=== PATIENT | female | born 1955 | race Caucasian/White ===

== ENCOUNTER 2019-03-30 13:05 | Emergency (ER) | payer BC, SELFPAY ==
[2019-03-30] VITALS (13 sets, daily range): BP systolic 111–147; BP diastolic 50–99; PULSE 92–112; RESP 17–33; TEMP 38.3–39.6; O2SAT 95–99
--- NOTE | ~2019-03-30 | XR_ITS ---
EXAMINATION: XR chest ET placement EXAM DATE: 03/30/2019 23:22 INDICATION: Intubated. TECHNIQUE: Portable AP frontal chest x-ray was obtained. Comparison is made to prior examination from earlier same date. FINDINGS: Endotracheal tube probably about 1-2 cm above kwan. There is a nasogastric tube seen with tip collimated off the study, but below the left hemidiaphragm. Development of moderate amount of bilateral perihilar predominant airspace disease, could be pneumoni a or edema/ARDS. Cardiomediastinal silhouette is normal. IMPRESSION: 1. Tubes adequately positioned. 2. Development of moderate bilateral perihilar edema/ARDS or pneumonia. Reviewed, dictated and finalized at location A. SCHOOL LIBRARIAN
--- NOTE | ~2019-03-30 | XR_ITS ---
EXAMINATION: XR abdomen NG/feed tube insert EXAM DATE: 03/30/2019 23:22 INDICATION: Feeding tube placement. TECHNIQUE: Frontal projection(s) of the abdomen for interpretation. There is no prior study for fara mathias. FINDINGS: Feeding tube tip and side-port project over stomach, adequate. Nonobstructive bowel gas pa ttern. There is no organomegaly. IMPRESSION: Feeding tube in position. Reviewed, dictated and finalized at location A. TRY OUT WORKER IMPRESSION: Feeding tube in position.
--- NOTE | ~2019-03-30 | CT_ITS ---
EXAMINATION: CT brain wo con DATE: 03/30/2019 15:03 INDICATION: Altered mental status. TECHNIQUE: Computed tomography (CT) of the head was performed without intravenous contrast. The dose- length product was 681.00 mGy-cm. The mA was adjusted according to patient size. Iterative reconstruc tion technique was employed. COMPARISON: None FINDINGS: Study limited by motion artifact. There is pneumocephalus. Intracranial gas is noted at the left temporal and parietal regions as well as the left parietal vertex. No depressed skull fractures are seen. There is moderate mucosal thickening of the paranasal sinuses. There is left mastoid effus ion. Normal brain parenchymal volume. Normal rasmussen-white differentiation. There are scattered mild per iventricular and subcortical white matter changes, most likely related to small vessel ischemic disea se (microangiopathy). No ventriculomegaly or midline shift. IMPRESSION: 1. Pneumocephalus, possibly iatrogenic secondary to recent intervention. Clinically correlate. No dep ressed skull fractures are identified. 2: Chronic age-related findings. 3: Moderate sinus disease. Left mastoid effusion. Reviewed, dictated and finalized at location A. OYEE DEVELOPMENT DIRECTOR IMPRESSION: 1. Pneumocephalus, possibly iatrogenic secondary to recent intervention. Clinic ally correlate. No depressed skull fractures are identified. 2: Chronic age-related findings. 3: Moderate sinus disease. Left mastoid effusion.
--- NOTE | ~2019-03-30 | CT_ITS ---
EXAMINATION: CT abdomen pelvis w con EXAM DATE: 03/30/2019 15:03 INDICATION: Altered mental status. Nonverbal. TECHNIQUE: Spiral CT of the abdomen and pelvis was performed following intravenous injection of 100 m L Omnipaque 350. Axial, coronal and sagittal images were reviewed. The dose-length product (DLP) fo r this examination was 1322.73 mGy-cm. The exposure was tailored according to patient size (auto mA exposure control), and iterative reconstruction (ASIR) was used as additional dose reduction techniqu e. There is no prior study for comparison. FINDINGS: The liver, spleen, adrenal glands and pancreas are unremarkable. Gallbladder is unremarkab le. No biliary obstruction. Portal and splenic veins are patent. Kidneys enhance symmetrically. T here is no hydronephrosis. The uterus and ovaries are unremarkable, no adnexal mass. The bladder i s collapsed with Irwin catheter balloon anchor inside. There is no retroperitoneal or pelvic lymphad enopathy. There is mild scattered arteriosclerotic disease. The appendix is normal. The stomach and small bowel are unremarkable. There is moderate amount of c olonic stool. No free intraperitoneal gas. The heart is normal in size. There are no pericardial or pleural effusions. The lung bases are unremarkable. There are no osteoblastic or osteolytic les ions identified. IMPRESSION: 1. Unremarkable CT abdomen pelvis exam. Reviewed, dictated and finalized at location A. UARY PAINTER
--- NOTE | ~2019-03-30 | XR_ITS ---
EXAMINATION: XR chest 1V portable DATE: 03/30/2019 13:44 INDICATION: Sepsis. TECHNIQUE: A single frontal view of the chest was obtained. COMPARISON: None. FINDINGS: The chest demonstrates clear lungs without pneumonia, pleural effusion, or pneumothorax. Th e heart size is normal. IMPRESSION: 1. No acute cardiopulmonary disease. Reviewed, dictated and finalized at location B. ING BALL MOLDER
--- NOTE | 2019-03-30 13:17 | PC.NURSE ---
PT UNABLE TO GIVE INFO DUE TO MENTAL STATUS SAID THAT PT WAS AWAKE AT 0400, LAST KNOWN NORMAL VERIFIED WAS LAST NIGHT VERIFIED THAT PT DOES OT HAVE ANY CARDIAC ISSUES. OR TAKES PRESCRIPTION DRUGS. VRBO TO START SEPSIS PROTOCOL FROM [facility] CAMARILLO
--- NOTE | 2019-03-30 13:26 | ECG_ITS ---
Measurements Intervals [place] Rate: 105 P: 1 GA: 131 QRS: 48 QRSD: 97 T: 27 QT: 323 QTc: 428 Interpretive Statements SINUS TACHYCARDIA BORDERLINE ST-T WAVE ABNORMALITY- INFERIOR LEADS BASELINE ARTIFACT- I, III ABNORMAL ECG Electronically Signed On 03-30-2019 13:37:40 SAW MAN by Jose Alberto Wilkerson D.O.
[2019-03-30 13:36] LABS: Basophils Absolute Auto 0.1 K/mm3 (0.0-0.1); Basophils Percent Auto 0.3 % (0.2-1.2); Hematocrit 42.9 % (37.0-47.0); Hemoglobin 14.3 g/dL (12.0-15.0); Immature Granulocyte Absolute 0.31 K/mm3 (0.00-0.031); Immature Granulocyte Percent A 1.3 % (0-0.5); Lymphocytes Absolute Auto 1.68 K/mm3 (0.9-3.2); Mean Corpuscular HGB Conc 33.3 g/dl (32-36); Mean Corpuscular Hemoglobin 30.6 pg (26-34); Mean Corpuscular Volume 91.9 fl (80-100); Mean Platelet Volume 10.9 fl (7.4-10.4); Monocytes Absolute Auto 1.7 K/mm3 (0.1-0.6); Monocytes Percent Auto 7.2 % (2.6-8.5); Neutrophils Absolute Auto 20.1 K/mm3 (1.3-6.7); Neutrophils Percent Auto 84.2 % (45.5-73.1); Platelet Count Result 251 k/mm3 (150-375); Red Blood Count 4.67 M/mm3 (4.2-5.4); Red Cell Distribution Width 12.8 % (11.5-14.5); White Blood Count 23.9 K/mm3 (4.5-10.0)
--- NOTE | 2019-03-30 13:45 | ED.AMS ---
HPI - Altered Mental Status General Chief Complaint: Altered Mental Status <Radha Oliveros MD - Last Filed: 03/31/19 18:30> Stated Complaint: FALL/AMS <Radha Oliveros MD - Last Filed: 03/31/19 18:30> Time Seen by Provider: 03/30/19 13:33 <Radha Oliveros MD - Last Filed: 03/31/19 18:30> Source: family () and RN notes reviewed <Radha Oliveros MD - Last Filed: 03/31/19 18:30> Mode of arrival: EMS <Radha Oliveros MD - Last Filed: 03/31/19 18:30> Limitations: altered mental status <Radha Oliveros MD - Last Filed: 03/31/19 18:30> History of Present Illness HPI narrative: A 64 y/o female presents to the ED via EMS with AMS beginning since she woke up. Per states that the pt has been having some subjective fevers, ALFARO, night sweats, and other cold symptoms for the past week, so she has been taking over the counter cold meds. He reports that she was normal when she went to bed last night at 9:30 PM and that he thought she responded to him at 9 AM this morning, but is now unsure. He states that roughly 2 hours ago they hear the pt fall and is unsure if she hit her head, but denies any visible injuries. He notes that the pt hasn't spoken since so they called EMS to have the pt brought here. Upon arrival the pt's temperature is 103.8 and the pt is still nonverbal. <Radha Oliveros MD - Last Filed: 03/31/19 18:30> MD complaint: altered mental status <Radha Oliveros MD - Last Filed: 03/31/19 18:30> Onset (ago): unknown <Radha Oliveros MD - Last Filed: 03/31/19 18:30> Consistency of symptoms: constant <Radha Oliveros MD - Last Filed: 03/31/19 18:30> Context: recent fever (subjective) <Radha Oliveros MD - Last Filed: 03/31/19 18:30> Associated symptoms: fever (subjective), headaches and other (night sweats and cold symptoms ) <Radha Oliveros MD - Last Filed: 03/31/19 18:30> Related Data Home Medications: Home Medications Medication Instructions Recorded Confirmed No Home Medications 03/30/19 03/30/19 <Radha Oliveros MD - Last Filed: 03/31/19 18:30> Allergies/Adverse Reactions: Allergies Allergy/AdvReac Type Severity Reaction Status Date / Time No Known Allergies Allergy Verified 03/30/19 13:20 <Radha Oliveros MD - Last Filed: 03/31/19 18:30> Review of Systems Review of Systems: Narrative: All ROS was provided by the pt's . <Radha Oliveros MD - Last Filed: 03/31/19 18:30> ROS unobtainable: unobtainable due to mental status <Radha Oliveros MD - Last Filed: 03/31/19 18:30> Constitutional: Constitutional: Reports fever(s) (subjective), Reports night sweats and Reports other ( cold symptoms ) <Radha Oliveros MD - Last Filed: 03/31/19 18:30> Neurologic: Reports headache(s) <Radha Oliveros MD - Last Filed: 03/31/19 18:30> PMFSH Past Medical History Medical History: Medical History (Updated 03/30/19 @ 23:40 by Radha Oliveros MD) Healthy female <Radha Oliveros MD - Last Filed: 03/31/19 18:30> Surgical History Surgical History: Surgical History (Updated 03/30/19 @ 14:02 by Filemon Choudhary) No history of previous surgery <Radha Oliveros MD - Last Filed: 03/31/19 18:30> Social History Social History: Social History (Updated 03/30/19 @ 14:02 by Filemon Choudhary) Smoking status: Unknown if ever smoked Gender identity (if verbalized by the patient): Female <Radha Oliveros MD - Last Filed: 03/31/19 18:30> Comments PCP not on file. <Radha Oliveros MD - Last Filed: 03/31/19 18:30> Exam Const: General: ill appearing <Radha Oliveros MD - Last Filed: 03/31/19 18:30> Limitations: altered mental status and behavioral limitations (patient is restless and moving around) <Radha Oliveros MD - Last Filed: 03/31/19 18:30> HENMT: Head: no palpable skull fracture, normocephalic and atraumatic <Radha Oliveros MD - [place]
[2019-03-30 13:46] LABS: Lactic Acid Reflex 2.5 mmol/L (0.7-2.1)
[2019-03-30 13:48] LABS: INR 1.1; Prothrombin Time 14.1 Seconds (11.1-14.7)
[2019-03-30 13:49] LABS: Partial Thromboplastin Time 28.9 SECONDS (22.3-36.8)
[2019-03-30 13:51] LABS: Albumin Level 4.1 g/dL (3.5-5.1)
[2019-03-30 13:52] LABS: Alanine Aminotransferase 31 U/L (4-35); Alkaline Phosphatase 57 U/L (38-126); Aspartate Amino Transferase 43 U/L (14-36); Bilirubin,Total 1.1 mg/dL (0.2-1.3); Blood Urea Nitrogen 12 mg/dL (7-17); Carbon Dioxide 20 mmol/L (22-30); Chloride 101 mmol/L (98-107); Estimated Glomerular Filt Rate > 60; Glucose 143 mg/dL (65-105); Sodium 136 mmol/L (137-145)
[2019-03-30] MEDS: HALOPERIDOL LACTATE 5 MG/ML VIAL IM (14:22)
[2019-03-30] MEDS: LORAZEPAM INJ 2 MG/ML VIAL 1 MG IV PUSH (14:22)
[2019-03-30 16:01] LABS: Add Urine Microscopic? YES; Appearance Urine Clear (Clear); Bilirubin Urine Negative (Negative); Blood Urine Negative (Negative); Color Urine Yellow (Yellow); Glucose Urine UA Negative (Negative); Ketones Urine 2+ mg/dL (Negative); Leukocyte Esterase Ur Negative LEU/UL (Negative); Mucus Urine Rare /lpf; Nitrate Urine Negative (Negative); Protein Urine Negative (Negative); Specific Grav Ur 1.024 (1.001-1.035); Squamous Epithelial Cell Urine Rare /hpf (Few); WBC Urine 0-3 /hpf
[2019-03-30 16:32] LABS: Reflex Lactic Acid Yes or No Add Lactic
[2019-03-30] MEDS: AMPICILLIN 2 GM/NS 100 ML 2 GM/100 ML BAG IVPB ×2 (16:40→20:16)
--- NOTE | 2019-03-30 18:04 | PC.NURSE ---
LP DONE BY DR KURTIS FAUST KETAMINE 50 TO BE GIVEN IVP TO HELP WITH PROCEDURE. PT TOLERATED WELL. CONSENT IN ROUNDER
[2019-03-30] MEDS: KETAMINE HCL 500 MG/10 ML VIAL (18:06)
[2019-03-30 18:17] LABS: Ammonia < 9 umol/L (9-30)
[2019-03-30 18:31] LABS: Glucose CSF < 30 mg/dL (40-70)
[2019-03-30 18:38] LABS: Total Protein CSF > 600 mg/dL (12-60)
[2019-03-30 18:52] LABS: Appearance CSF Hazy (Clear); CSF source CSF; Color CSF Colorless (Colorless)
[2019-03-30 18:53] LABS: Nucleated Cell CSF 11356 /uL (0-5); Red Blood Cell CSF 0 (0-2)
--- NOTE | 2019-03-30 18:59 | PC.NURSE ---
DR HULL GAVE ORDER NOT TO CONTINUE FLUIDS 1345 PT RECEIVED TOTAL OF 450 AT THIS TIME AT 1730 DR HULL GAVE VRBO TO GIVE THE PT 1 L NS PT HAD 450 ML DRAINED FROM CATHETER BAG
[2019-03-30 19:08] LABS: Lymphocytes CSF 4 % (40-80); Monocytes CSF 1 % (15-45); Neutrophils CSF 95 % (0-6)
--- NOTE | 2019-03-30 19:50 | PC.NURSE ---
Call to bed placement at [facility] per Kamila Jeffries ED junior legal secretary. Report are still working on a bed.
--- NOTE | 2019-03-30 19:52 | PC.NURSE ---
Verbal order to continue sepsis fluids received. Additional NS initiated. Pt confused, nonverbal on exam. Will not answer questions.
--- NOTE | 2019-03-30 21:30 | PC.NURSE ---
Pt remains restless, sitting up. Nonverbal and does not follow commands. O2 sensor placed on forehead, consistently reading 88-90% with good pleth. Dr. Oliveros at bedside. Order received to place pt on . Note increase in spo2. Call again to [facility]; state continue to await bed availability. Pt and family updated.
--- NOTE | 2019-03-30 22:41 | PC.NURSE ---
Preparing to intubate due to patient being restless and low pulse oximetry. Fentanyl 50mcg given IVP.
--- NOTE | 2019-03-30 22:42 | PC.NURSE ---
Ketamine 75mg given IVP.
[2019-03-30] MEDS: RAPID SEQUENCE INTUBATION KIT 1 EACH (22:43)
--- NOTE | 2019-03-30 22:43 | PC.NURSE ---
100mg succinylcholine given IVP.
--- NOTE | 2019-03-30 22:45 | PC.NURSE ---
Pt intubated 7.[address] Oliveros with first attempt. Taped at 23 at teeth. Placement confirmed with ant/lat breath sounds. No sounds over epigastrium. CO2 detector placed and negative. #16 F NG tube placed per Tevin Herrera RN. Positive placement confirmed with ausculatation over epigastrium. Called for portable films for ETT/OG tube placement.
--- NOTE | 2019-03-30 22:55 | PC.NURSE ---
100mg of Diprovan given IVP due to pt making purposeful movements to remove ETT. 50mg of rocuronium given IVP as well.
[2019-03-30] MEDS: SODIUM CHLORIDE 0.9% IV 1,000 ML 999 ML IV CONT (23:00)
--- NOTE | 2019-03-30 23:00 | PC.NURSE ---
Pt's 2nd liter infused. 3rd liter initiated for additional 200cc of NS per protocol. Connected to LAC IV.
--- NOTE | 2019-03-30 23:07 | PC.NURSE ---
Portable films being done for ETT/OGT placement.
--- NOTE | 2019-03-30 23:25 | PC.NURSE ---
Fentanyl and Versed gtts initiated for sedation. Pt making attempts to grab at tube.
[2019-03-30] MEDS: MIDAZOLAM HCL 50 MG in DEXTROSE 5% 90 ML IV CONT (23:26)
[2019-03-30 23:27] LABS: Alveolar/Arterial O2 Gradient 343.5 mmHg; Base Excess ABG -7.9 mEq/l (+/-2.0); Carboxyhemoglobin 0.2 % THb (0-2.0); Device VENTILATOR; Fractional Inspired Oxygen 100 %; HCO3 ABG 17.8 mEq/l (22.0-26.0); Methemoglobin ABG 0.2 %THb (0-1.5); Modified Allen's Test Pass; Oxygen Content ABG 18.5 %vol (16.0-22.0); Oxygen Saturation ABG 99.7 % (95.0-100.0); PCO2 ABG 36.9 mmHg (35.0-45.0); PO2 ABG 332.6 mmHg (80.0-100.0); PO2 FiO2 Ratio Arterial Blood 3.33 %; Reduced Hemoglobin 1.6 %THb (0-5.0); Site Drawn RIGHT RADIAL; Total Hemoglobin 12.8 g/dL (12.0-18.0); pH ABG 7.301 (7.350-7.450)
[2019-03-30 23:28] LABS: Arterial Blood Gas PEEP 5 cmH2O; Arterial Blood Gas Tidal Volume 400 ml; Arterial Blood Gas Vent Mode CMV; Arterial Blood Gas Ventilator rate 16 /MIN
--- NOTE | 2019-03-30 23:31 | PC.NURSE ---
Addendum entered by Mynor Barker RN 03/31/19 01:13: ETT placement confirmed per Dr. Oliveros. Vent settings 400TV/5PEEP/16 rate o2 70%. Original Note: Call to [facility] bed placement. [facility] pt is on a wait list and will call [facility] with an update every few hours if an ICU bed becomes available.
--- NOTE | 2019-03-30 23:45 | PC.NURSE ---
Multiple titrations needed of versed and fentanyl gtts, pt restless, coughing, attempting to pull at tube. Suctioning prn orally and per ETT. Pt calms for short periods and then attempts to pull at tube.
--- NOTE | 2019-03-30 23:50 | PC.NURSE ---
Pt continues to be restless, RT at bedside, Dr. Oliveros made aware. Pt coughing, attempting to sit up. Versed gtt increased again. Soft wrist restraints placed for pt safety.
[2019-03-31] VITALS (11 sets, daily range): BP systolic 98–133; BP diastolic 51–62; PULSE 73–99; RESP 16–18; TEMP 37.7–39.4; O2SAT 95–100
[2019-03-31] MEDS: ACYCLOVIR SODIUM IVPB 800 MG in DEXTROSE 5% IN WATER 250 ML 266 MG IVPB (00:20)
--- NOTE | 2019-03-31 00:46 | PC.NURSE ---
Dr. Domo norman Purvis as [facility] continues to have no ICU beds available.
--- NOTE | 2019-03-31 01:00 | PC.NURSE ---
Pt coughing, turning head side to side, straining against restraints to attempt to pull ETT tube out. Versed gtt increased again. Dr. Oliveros at bedside. Diprovan gtt initiated per order. Pt now has stooled from force of coughing. Continue oral and ETT suctioning prn.
[2019-03-31] MEDS: PROPOFOL IV EMULSION 100 ML 5 MG (01:02)
--- NOTE | 2019-03-31 01:27 | PC.NURSE ---
Pt cleaned of stool/linens changed, and pt repositioned per staff. Pt beginning to appear calmer.
--- NOTE | 2019-03-31 01:32 | PC.NURSE ---
Call received from Mynor at [facility], given room # 94211-C. Number for report [phone].
--- NOTE | 2019-03-31 01:34 | PC.NURSE ---
Report to CJ at [facility] in ICU. Will attempt to find transport.
--- NOTE | 2019-03-31 01:51 | PC.NURSE ---
[facility] contacted to transport pt to [place] ICU. Approx ETA @[phone].
[2019-03-31] MEDS: ACETAMINOPHEN 650 MG SUPPOSITORY RECTAL (02:05)
--- NOTE | 2019-03-31 02:28 | PC.NURSE ---
Pt has been calm for approx 1/2 hr, no movements to attempt to remove tube, resting quietly. Soft restraints removed.
--- NOTE | 2019-03-31 02:47 | PC.NURSE ---
[facility] called and updated ETA to [phone]
--- NOTE | 2019-03-31 02:58 | PC.NURSE ---
[facility] called and states will now be approx 0345 to 0400 before arriving. Pt's daughter made aware. Pt status unchanged.
[2019-03-31] MEDS: AMPICILLIN 2 GM/NS 100 ML 2 GM/100 ML BAG IVPB (03:59)
--- NOTE | 2019-03-31 04:06 | PC.NURSE ---
Awaiting transport to [facility]. Pt quiet, sedated.
--- NOTE | 2019-03-31 04:10 | PC.NURSE ---
Called [facility] to update ETA. ETA [phone]
--- NOTE | 2019-03-31 04:18 | PC.NURSE ---
Called [facility] to transport patient. [facility] Declined.
--- NOTE | 2019-03-31 04:57 | PC.NURSE ---
1st bag midalozam infused, 2nd bag initiated. Continues at 8mg or 16mg/hr via pump.
--- NOTE | 2019-03-31 05:08 | PC.NURSE ---
Note pt's left AC is appearing irritated, IV cath appears bent. Pt's fentanyl and versed moved to right hand IV site. Attempt to initiate IV to left upper arm unsuccessful.
--- NOTE | 2019-03-31 05:40 | PC.NURSE ---
Called [facility] to ETA update. ETA 45 minutes (0625)
--- NOTE | 2019-03-31 05:56 | PC.NURSE ---
Attempting to initiated additional IV. Note pt's spo2 decreasing to mid to low 80's. Pt is unresponsive, is not coughing or appear in any distress. Pt has good breath sounds anterally and laterally. Yesenia from respiratory at bedside. 02 on vent increased from 50% back to 70%. Respiratory staff noted at bed at 0150 but states they did not decrease o2 per vent.
--- NOTE | 2019-03-31 06:21 | PC.NURSE ---
Note bp decreased to 98/51. Versed gtt decreased to 6mg/hr or 12ml/hr via pump. Remaining IVF from bolus initiated at 150cc/hr per v.o. Dr. Burgos.
--- NOTE | 2019-03-31 06:35 | PC.NURSE ---
Pt's diprovan decreased to 2mcg/min or 11cc/hr for pressure 96/52.
--- NOTE | 2019-03-31 06:57 | PC.NURSE ---
Note with IV initiation that pt occasionally attempts to pull away from painful stimuli and bends arm in an attempt to pull at ETT. Able to redirect behavior/stop the behavior with extra assistance and holding.
--- NOTE | 2019-03-31 07:01 | PC.NURSE ---
Called [facility] for davidate on ETA. ETA 45 minutes to 1 hour.
--- NOTE | 2019-03-31 07:06 | PC.NURSE ---
Called [facility] to transport patient to [facility]. [facility] declined.
--- NOTE | 2019-03-31 07:33 | PC.NURSE ---
[facility] cancelled due to [facility] accepted transfer ETA 5-7 min
--- NOTE | 2019-03-31 19:15 | PC.NURSE ---
0834: patient had 12.2 ml of versed drip infused at this time. Patient tolerated well. Flight crew is transferring patient on propofol, versed, and fentanyl drips.
[2019-04-02 05:22] LABS: Herpes Simplex Type 1 DNA PCR Not Detected (Not Detected); Herpes Simplex Type 2 DNA PCR Not Detected (Not Detected)
== END 2019-03-31 07:33 | disposition short-term general hospital (02) ==
PROVIDERS: Emergency Medicine; General Practice; Emergency Provider Emergency Medicine
DX: A41.9 Sepsis, unspecified organism (principal); G03.9 Meningitis, unspecified; G93.89 Other specified disorders of brain; R65.20 Severe sepsis without septic shock; R00.0 Tachycardia, unspecified; R94.31 Abnormal electrocardiogram [ECG] [EKG]
CPT/HCPCS: 31500; 36415; 36600; 62270; 70450; 71045; 74177; 80053; 81001; 82140; 82375; 82805; 82945; 83050; 83605; 84157; 85025; 85610; 85730; 86140; 87040; 87070; 87077; 87181; 87186; 87205; 87529; 87804; 88108; 89051; 93005; 96365; 96366; 96367; 96368; 96372; 96375; 96376; 99291; A9270; J0131; J0133; J0290; J0696; J1100; J1630; J2060; J2250; J2704; J3010; J3370; J7030; J7050; J7060; Q9967